=== PATIENT | female | born 1995 | race Caucasian/White ===

== ENCOUNTER → 2018-12-24 14:41 | Outpatient (CLI) | payer OTHER, SELFPAY ==
[2019-01-21 09:33] LABS: Informaseq SEE SEPARATE REPORTS
== END ==
PROVIDERS: Visit Provider Obstetrics & Gynecology
DX: Z34.91 Encounter for supervision of normal pregnancy, unspecified, first trimester (principal); Z3A.10 10 weeks gestation of pregnancy
CPT/HCPCS: 36415; 81507

== ENCOUNTER → 2019-01-31 16:15 | Outpatient (CLI) | payer OTHER, SELFPAY ==
[2019-02-07 17:17] LABS: AFP, Serum 28.9 ng/mL; Calc Gestational Age 16.4; Est Date Determined by US; Maternal Weight 185 lbs; Number of Fetuses NOT GIVEN; Prev Pregnancies Down Syndrome NOT GIVEN
== END ==
PROVIDERS: Visit Provider Obstetrics & Gynecology
DX: Z34.82 Encounter for supervision of other normal pregnancy, second trimester (principal); Z3A.16 16 weeks gestation of pregnancy
CPT/HCPCS: 36415; 82105

== ENCOUNTER → 2019-02-28 13:14 | Outpatient (CLI) | payer OTHER, SELFPAY ==
--- NOTE | 2019-02-28 13:15 | DI.US.S_ITS ---
PROCEDURE: US OB >= 14 WEEKS FETUS INDICATIONS: anatomic survey OUTSIDE/PRIOR DATING DATA: Last menstrual period (LMP): 10/08/2018. LMP-based estimated date of delivery (TIM): 07/15/2019. First dating scan (date and location): 12/06/2018. Estimated date of delivery (TIM) from first dating scan: 07/18/2019. TECHNIQUE: Real-time scanning was performed of the fetus, with image documentation and biometric measurements. Endovaginal scanning: No COMPARISON: None. FINDINGS: General: A single living intrauterine gestation is present. Presentation: Vertex. Placenta: Placental position is posterior fundal, without previa. Amniotic fluid index: 17.6 cm, normal range is 5-24 cm. heart rate: 145 beats per minute. Maternal cervical canal: 3.5 cm long. Normal lower limit is 2.5 cm= biometrics: Biparietal diameter: 20 weeks 2 days Head circumference: 20 weeks 5 days Abdominal circumference: 21 weeks 2 days Femur length: 20 weeks 5 days Estimated gestational age from initial scan: 20 weeks 0 days Composite gestational age from present scan: 20 weeks 4 days Estimated weight and percentile: 389 g; 92nd percentile Measurement variability for biometric dating: +/- 7 days from 14 weeks to 15 weeks 6 days gestation, +/- 10 days from 16 weeks to 21 weeks 6 days gestation, +/- 2 weeks from 22 weeks to 27 weeks 6 days gestation, +/- 3 weeks for 28 weeks gestation or later. weight reference: 4500 g or EFW >90/95% is considered macrosomia or large for gestational age. EFW <10% is small for gestational age. EFW 5% or less is considered intra-uterine growth restriction. Anatomic survey: Neuro: Ventricles are non-dilated at less than 10 mm. Cisterna magna is normal at 3-11 mm. Cerebellum is normal in size and morphology. Nuchal skin fold: Normal at less than 6 mm between 14-21 weeks gestational age. Face: Not well-seen. Spine: No evidence for spina bifida. Heart: 4-chambered heart is present, with normal ventricular outflow tracts. Diaphragm: Diaphragm is intact. Stomach: Left-sided stomach is present. Kidneys: No hydronephrosis. Normal is less than 5 mm in 2nd trimester, less than 7 mm in 3rd trimester. Cord: 3-vessel cord has orthotopic insertion. Bladder: Normal in size. Extremities: All 4 extremities identified. IMPRESSION: 1. Single living IUP redemonstrated and interval growth is normal. 2. face not well visualized; otherwise normal anatomy. Dictated by: Pavel GODINEZ Interpreted: Lavinia Pelayo MD on 02/28/2019 at 14:35 Approved by: Lavinia Pelayo M.D. on 03/04/2019 at 9:10
== END ==
PROVIDERS: Visit Provider Obstetrics & Gynecology
DX: Z34.82 Encounter for supervision of other normal pregnancy, second trimester (principal); Z3A.20 20 weeks gestation of pregnancy
CPT/HCPCS: 76811

== ENCOUNTER → 2019-04-04 13:19 | Outpatient (CLI) | payer OTHER, SELFPAY ==
[2019-04-04 14:57] LABS: Hematocrit 32.7 % (36-46); Hemoglobin 11.1 g/dL (12.0-16.0)
[2019-04-04 15:10] LABS: GTT (PREG) 1 Hour PP 50gm Dose 117 mg/dL (76-139)
== END ==
PROVIDERS: Visit Provider Obstetrics & Gynecology
DX: O26.899 Other specified pregnancy related conditions, unspecified trimester (principal); Z67.91 Unspecified blood type, Rh negative; Z3A.25 25 weeks gestation of pregnancy
CPT/HCPCS: 36415; 82950; 85014; 85018; 86850

== ENCOUNTER → 2019-06-17 10:13 | Outpatient (CLI) | payer OTHER, SELFPAY ==
[2019-06-18 14:28] LABS: Strep Grp B PCR NEG for Grp B Strep
== END ==
PROVIDERS: Visit Provider Obstetrics & Gynecology
DX: Z34.82 Encounter for supervision of other normal pregnancy, second trimester (principal); Z36.85 Encounter for antenatal screening for Streptococcus B
CPT/HCPCS: 87653

== ENCOUNTER 2019-06-30 23:01 | Outpatient (CLI) | payer OTHER, SELFPAY | END 2019-06-30 23:47 | disposition home or self-care (01) | LOC: OB 07-01 12:40 | DX: O36.8130 Decreased fetal movements, third trimester, not applicable or unspecified (principal); Z3A.37 37 weeks gestation of pregnancy | CPT/HCPCS: 59025; G0378; G0379 ==

== ENCOUNTER 2019-07-03 06:41 | Inpatient (IN) | payer OTHER, SELFPAY ==
[2019-07-03] MEDS: LACTATED RINGERS 1,000 ML 42 ML IV ×2 (07:35→08:45)
[2019-07-03 08:25] LABS: Add Manual Diff / Slide Review NO; Basophils Absolute Auto 0 /uL (0-100); Basophils Percent Auto 0.4 % (0-2); Eosinophils Absolute Auto 100 /uL (0-450); Hematocrit 36.3 % (36-46); Lymphocytes Absolute Auto 2500 /uL (1100-4500); Lymphocytes Percent Auto 27.6 % (25-40); Mean Corpuscular Volume 84.7 fL (80-100); Monocytes Absolute Auto 500 /uL (0-900); Monocytes Percent Auto 5.9 % (3-14); Neutrophils Absolute Auto 5900 /uL (1500-7000); Neutrophils Percent Auto 65.1 % (50-75); Platelet Count 190 X10^3/uL (150-400); Red Blood Cell Count 4.28 X10^6/uL (4.0-5.2); Red Cell Distribution Width 16.4 % (11.6-14.8)
--- NOTE | 2019-07-03 08:49 | PM.PREOP ---
Pre-operative Note Interval Note History & Physical reviewed/Exam performed by Physician: Yes Changes to H&P: No
[2019-07-03] MEDS: CEFAZOLIN 2 GM/100 ML FROZ.PIGGY IV (08:54)
--- NOTE | 2019-07-03 09:22 | SUR.OPER ---
Supine on Padded OR bed, head on pillow, safety belt at thigh, arms secured on padded arm boards at <90 degrees abduction. Bump under right buttock. Legs uncrossed with pillow under knees, gel pad to heels, tape over blanket to lower legs.
[2019-07-03] MEDS: ACETAMINOPHEN IV 1,000 MG/100 ML VIAL 400 MG IV (09:25)
--- NOTE | 2019-07-03 09:33 | SUR.OPER ---
preoperative [id number]. Live male at 0933
[2019-07-03 10:11] VITALS: BP 123/68; PULSE 87; RESP 16; TEMP 36.4; O2SAT 99
--- NOTE | 2019-07-03 10:15 | P.OP_ITS ---
Operative Date/Time/Diagnoses Date of procedure: 07/03/19 Time of procedure: 10:15 Pre-op diagnosis: 39 weeks gestation Previous section Post-op diagnosis: same Procedure & Clinicians Procedure: Procedures Operation Date: 07/03/19 08:45 Actual Procedures Side Surgeon p Section-Repeat Roopa Condon MD Indications: 39 weeks gestation Previous section Surgeon: Roopa Condon Tube Sizer Operator: Iman Prescott Anesthesia Type: Spinal (With Duramorph) Operative Notes Findings: Live male infant in the HEENA presentation Normal uterus, tubes, and ovaries Closure Type: primary Specimen(s): other (Placenta, cord bloods) Applied: catheter Estimated blood loss (mL): 350 Blood products transfused: none Procedure in detail: The patient was taken to the operating room where she was placed in the seated position. Spinal anesthesia with Duramorph was administered. The patient was then placed in the dorsal supine position with a leftward tilt. She was prepped and draped in the usual sterile fashion. A timeout was performed. After spinal analgesia was found to be adequate, a Pfannenstiel skin incision was made through the previous incision and carried through to the underlying layer fascia. The fascia was nicked in the midline, and the incision extended bilaterally with the Blankenship scissors. The superior aspect of the fascial incision was grasped with a Nash clamps, elevated, and the underlying rectus muscles dissected off sharply and bluntly. Attention was then turned to the inferior aspect of this incision which in a similar fashion was grasped with a Nash clamps, elevated, and the underlying rectus muscles dissected off sharply and bluntly. The rectus muscles were in the midline. The peritoneum was identified, grasped between 2 hemostats, and entered sharply with the Metzenbaum scissors. This incision was extended superiorly and inferiorly with good visualization of the bladder. The bladder blade was inserted. The vesicouterine peritoneum was identified, grasped with the pickup, and entered sharply with the Metzenbaum scissors. This incision was extended bilaterally, and the bladder flap was created digitally. The bladder blade was reinserted. The lower uterine segment was incised in a transverse fashion with the scalpel. Upon entering the amniotic sac there was moderate amount of clear amniotic fluid. The infant's head was delivered with vacuum assistance. The nose and mouth were suctioned with bulb suction. The remainder of the body delivered without difficulty. The cord was double clamped and cut. The infant was handed off to waiting RN and RT. The placenta was delivered manually. The uterus was cleared of all clots and debris. The uterine incision was repaired with #1 chromic in a running interlocking fashion, and a second layer the same suture was used for an imbricating layer. Hemostasis was achieved. The tubes and ovaries were examined and were found to be normal. The gutters were cleared of all clots and debris. The bladder flap was reapproximated using 2-0 Vicryl in a running fashion. The parietal peritoneum was closed using 2-0 Vicryl in a running fashion. The fascia was reapproximated using 0 Vicryl in a running fashion. The subcutaneous layer was copiously irrigated with warm normal saline. 5 simple interrupted sutures of 3-0 Vicryl were placed to reapproximate the subcutaneous layer. The skin was closed with 4-0 undyed Biosyn in a subcuticular fashion. Steri-Strips were placed. An Aquacell dressing was placed. The uterus was expressed of a small amount of old blood. Sponge, lap, and instrument counts were correct x-2. The patient tolerated the procedure well, and was taken to PACU in stable condition. Complications: none Post-operative Condition: stable Disposition: PACU Plan for aftercare: To the center after recovery
[2019-07-03 10:16] VITALS: BP 121/72; PULSE 78; RESP 14; O2SAT 99
[2019-07-03 10:21] VITALS: BP 127/70; PULSE 88; RESP 16; TEMP 36.6; O2SAT 96
[2019-07-03 10:31] VITALS: BP 121/63; PULSE 79; RESP 16; O2SAT 97
[2019-07-03 11:17] VITALS: BP 132/84
[2019-07-03] MEDS: ONDANSETRON 4 MG/2 ML INJ IV (11:53)
[2019-07-03] MEDS: diphenhydrAMINE 50 MG/ML VIAL 25 MG IV (14:41)
[2019-07-03] MEDS: KETOROLAC 30 MG/ML VIAL IV ×2 (17:33→23:36)
[2019-07-03] MEDS: LABETALOL 100 MG TABLET PO (21:00)
[2019-07-04] MEDS: diphenhydrAMINE 50 MG/ML VIAL 25 MG IV (00:15)
[2019-07-04] MEDS: KETOROLAC 30 MG/ML VIAL IV (05:37)
[2019-07-04 07:50] LABS: Hematocrit 35.2 % (36-46); Hemoglobin 11.8 g/dL (12.0-16.0)
[2019-07-04] MEDS: LABETALOL 100 MG TABLET PO (10:54)
[2019-07-04] MEDS: DOCUSATE 250 MG CAPSULE PO (10:55)
[2019-07-04] MEDS: IBUPROFEN 600 MG TABLET PO (10:55)
[2019-07-04 13:37] VITALS: BP 133/85; PULSE 108; RESP 19; TEMP 36.9
[2019-07-04] MEDS: RHO(D) IMMUNE GLOBULIN 1,500 UNIT SYRINGE 1500 UNIT IM (14:46)
[2019-07-04] MEDS: OXYCODONE/ACETAMINOPHEN 5/325 TABLET 2 TAB PO (14:46)
[2019-07-04] MEDS: OXYCODONE IR 5 MG TABLET PO (15:53)
--- NOTE | 2019-07-06 18:51 | P.DS_ITS ---
Discharge Providers Provider Date of admission: 07/03/19 06:41 Discharge Date: 07/04/19 Consults: 07/03/19 10:59 Consult to [facility] Routine Comment: Discharge provider: Roopa Condon MD Summary Hospital Course Date Patient Seen: 07/04/19 Time Patient Seen: 10:15 Procedures: Repeat low-transverse section Spinal anesthesia Hospital Course: Patient is a 24-year-old 2 para 2 who presented on 07/03/2019 for a scheduled repeat low-transverse section. She underwent this procedure without complication. Her postoperative course was unremarkable and she was discharged home on postop day # 1. Peripartum Data Laceration description: None Episiotomy description: None Procedures: Repeat low-transverse section Spinal anesthesia complications: none Status at Discharge Cognitive/behavioral status at discharge: oriented Functional status at discharge: independent ambulation Overall status at discharge: patient is progressing back to baseline Time Spent with Patient Time attestation: Total time spent providing and/or coordinating discharge services: Time spent: Less than 30 minutes Objective Labs Result Diagrams: 07/04/19 06:40 Exam Vital Signs (past 8 hours): Oxygen Delivery Method Room Air Narrative Exam Narrative: Generally: Patient is sitting up in bed, nursing infant, no acute distress Fundus: Firm at U -1 Incision: Clean dry and intact with Aquacel dressing Extremities: Trace edema, negative Homans Discharge Plan Discharge Plan Patient Disposition: Home Discharge comment: Call with fever, chills, redness or drainage or bleeding vaginally more than a pad in an hour Discharge Med Rec/Prescriptions Prescriptions: New ibuprofen 600 mg tablet 600 mg PO TID PRN (Reason: pain or cramping) Qty: 30 RF: 2 oxycodone-acetaminophen [Percocet] 5-325 mg tablet 1 tab PO Q4-6H PRN (Reason: pain) Qty: 30 RF: 0 Continued labetalol 200 mg tablet 200 mg PO BID Qty: 60 RF: 2 hydroxyzine HCl 25 mg tablet 25 mg PO TID PRN (Reason: anxiety) Qty: 20 RF: 0 prenat.vits,oksana,ttx-nihm-kahvr tablet 1 tab PO DAILY RF: 0 Follow up/Referrals: Roopa Condon MD [Physician] - (Follow up incision check with Dr. Condon on July 2 @3:45pm. Clinic on Saturday, July 07 at 1:00 pm.) Provider Discharge Instructions Diet: Regular Skin/Wound/Dressing Care Report to your healthcare provider any signs of infection, such as:: chills, fever, increased pain, unusual drainage and unusual redness Dressing: Do not remove Visit Report/Discharge Packet Instructions: DI for Stand Alone Forms: Discharge: Care Discharges patient from system. Discharge Date/Time: 07/04/19 18:10
== END 2019-07-04 18:10 | disposition home or self-care (01) | DRG 788 ==
PROVIDERS: Admitting Provider Obstetrics & Gynecology; Visit Provider Obstetrics & Gynecology
PROC: 10D00Z1 Extraction of Products of Conception, Low, Open Approach (ICD-10-PCS; CPT 59514; principal; 2019-07-03 08:45)
DX: O34.219 Maternal care for unspecified type scar from previous cesarean delivery (principal); Z3A.39 39 weeks gestation of pregnancy; Z37.0 Single live birth
CPT/HCPCS: 36415; 59050; 59510; 59514; 85014; 85018; 85025; 85461; 86850; 86900; 86901; J0131; J0690; J1200; J1885; J2274; J2405; J2590; J2704; J2790